=== PATIENT | female | born 1960 | race African-American/Black ===

== ENCOUNTER 2022-10-01 04:16 | Day surgery (SDC) | payer BC, OTHER ==
[2022-09-27 10:22] VITALS: BMI 39.5
[2022-10-01] MEDS ORDERED: ceFAZolin SODIUM 1 GM VIAL IVPB ONE (11:00)
[2022-10-01] MEDS ORDERED: SUCCINYLCHOLINE CHLORIDE 200 MG/10 ML SYRINGE ONE (11:11)
[2022-10-01] MEDS ORDERED: PROPOFOL 40 ML ONE (11:21)
[2022-10-01] MEDS ORDERED: ACETAMINOPHEN 1000 MG/100 ML BAG IVPB ONE ×2 (12:24→12:27)
[2022-10-01] MEDS ORDERED: ACETAMINOPHEN INJECTION 100 ML IVPB ONE (12:24)
[2022-10-01 16:31] VITALS: BP 120/60; PULSE 57; RESP 18; TEMP 97.5
== END 2022-10-01 17:05 | disposition home or self-care (01) ==
LOC: JASU-SURG 04:16
PROVIDERS: ATTEND Obstetrics & Gynecology
PROC: 0UT54ZZ Resection of Right Fallopian Tube, Percutaneous Endoscopic Approach (ICD-10-PCS; principal; 2022-10-01 09:30)
DX: N70.11 Chronic salpingitis (principal)
CPT/HCPCS: 82962; 86850; 86900; 86901; 88305-TC; 94760